=== PATIENT | male | born 1990 | race Caucasian/White ===

== ENCOUNTER 2025-02-19 14:07 | Emergency (ER) | payer OTHER, SELFPAY ==
--- OUTSIDE RECORDS SUMMARY | 2025-02-19 14:11 | XMS_ITS | Clinical Summary ---
Author Organization [employer] [facility] Address [facility] [place] [address] Care Team Providers Care Community Health Advisor Name Role Phone Chirag Serrato MD Primary Care Provider Allergies No known active allergies Medications No known medications Active Problems Problem Noted Date Diagnosed Date Benign paroxysmal positional vertigo 06/24/2008 Acute sinusitis, unspecified 06/24/2008 Pain in joint, lower leg 06/24/2008 Overview (06/24/2008): Left leg Contusion of thigh 11/16/2006 Immunizations Immunization Administration Dates Next Due Anthrax Vaccine 01/20/2015 Hepatitis A (Adult) 12/30/2010 Inactivated Polio Vaccine 10/29/2009 Influenza A (H1N1), Inactivated (Age >=3 Years) 10/29/2009 Influenza Virus, Unspecified 09/18/2020 Influenza, IIV4 09/18/2020 Meningococcal Vaccine 09/21/2006 Meningococcal Vaccine (Menactra) 10/29/2009,1107/2006 Smallpox (Vaccinia) Live [id number] 07/20/2012 Td (Age >=7 Years) 06/24/2003 Tdap 10/29/2009 Typhoid (injectable) 02/10/2014 Family History Medical History Relation Name Comments Hyperlipidemia Father Hypertension Father Relation Name Status Comments Father Social History Tobacco Use Types Packs/Day Years Used Date Smoking Tobacco: Never Smokeless Tobacco: Former Comments:no smokers in the h ouse Alcohol Use Standard Drinks/Week Comments No 0 (1 standard drink = 0.6 oz pur e alcohol) PHQ-2 Answer Date Recorded PHQ-2 TOTAL SCORE 0 10/05/2020 Social Connections Answer Date Recorded Frequency of Communication with Friends and Fami ly Not on file 11/09/2021 Financial Resource Strain Answer Date R ecorded Difficulty of Paying Living Expenses Not on file 11/09/2021 Difficulty of Paying Living Expenses Not on file 11/09/2021 Sex and Gender Information Value Date Recorded Sex Assigned at Not on file 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 Gender Identity Not on file Sexual Orientation Not on file Obstetrics History Last Filed Vital Signs Vital Sign Reading Time Taken Comments Blood Pressure 124/84 10/05/2020 2:59 PM COPY PREPARER Pulse 80 10/05/2020 2:59 PM COPY PREPARER Temperature - - Respiratory Rate 14 06/24/2008 1:41 PM CDT Oxygen Saturation - - Inhaled Oxygen Concentration - - Weight 97.7 kg (215 lb 4.8 oz) 10/05/2020 2:55 P M COPY PREPARER Height 177.8 cm (5' 10) 10/05/2020 2:55 PM COPY PREPARER Body Mass Index 30.89 10/05/2020 2:55 PM COPY PREPARER Plan of Treatment Health Maintenance Due Date Last Done Comments HIV for age 15-65 2003 Hepatitis C screening for ag e 18-79 2006 Tetanus booster 10/29/2019 10/29/2009, 06/24/2003 BMI (ht and wt on same day) for age 18+ 10/05/2021 10/05/2020 Depression screening for age 12+ 10/05/2021 10/05/2020 Lipids for age 35-44 2023 COVID-19 vaccine series ( season) 2024 Influenza Vaccine (Season Ended) 2025 09/18/2020, 09/18/2020 Tdap Completed 10/29/2009 Pneumococcal series for age 6-49 Aged Out No longer eligible b ased on patient's age to complete this topic Care Teams Community Health Advisor Relationship Specialty Start Date End Date Chirag Serrato MD [address] [place] [address] PCP - General 12/30/05
[2025-02-19 14:14] VITALS: BP 142/76; PULSE 86; RESP 16; TEMP 36.8; O2SAT 98
--- NOTE | 2025-02-19 14:23 | CRLHL7_ITS ---
For Patients: As a result of the Century Cures Act, medical imaging exams and procedure reports are released immediately into your electronic medical record. You may view this report before your referring provider. If you have questions, please contact your health care provider. INDICATION: Left nostril pain. Facial numbness. Rule out nasal fracture TECHNIQUE: Volumetric helical scanning of the facial bones was performed without contrast material. Sagittal and coronal reconstructions were also obtained. COMPARISON: None FINDINGS: No fracture is evident. The paranasal sinuses and nasal fossa are clear. The nasal septum is midline. No soft tissue abnormality is evident. IMPRESSION: Negative CT of the facial bones and paranasal sinuses Please note that all CT scans at this facility use dose modulation, iterative reconstruction, and/or weight-based dosing when appropriate to reduce radiation dose to as low as reasonably achievable. Dictated by Corwin Wetzel MD @ 02/19/2025 2:57:48 PM (Electronically Signed)
--- NOTE | 2025-02-19 14:28 | ED_ITS ---
HPI - General Adult General Chief complaint: Nose Injury/Pain Stated complaint: possible broken nose Time Seen by Provider: 02/19/25 14:08 History of Present Illness HPI narrative: 34-year-old white male playing hockey on Monday got elbowed in the nose. He has broken his nose a couple times in the past. He feels like it is a little numb below his nostrils. He had little bit of bleeding initially that seems to have stopped he is not having significant pain but he is having low more headaches that he has had. And he also when touching his nose at the tip of his nose actually he will get little more pain. No other problems with the neck, no loss consciousness. He is an avid fisherman. Related Data Allergies Allergy/AdvReac Type Severity Reaction Status Date / Time No Known Allergies Allergy Verified 02/19/25 14:13 Review of Systems Status of ROS: Reports: 6 or more systems reviewed and unremarkable except as noted in History and below PFSH PFS Social History Smoking Status: Never smoker How often do you have a drink containing alcohol: 2-4 times a month AUDIT-C Alcohol total score: 2 Non-prescribed substance use: denies use Exam Narrative: Exam Narrative: Objective: Vital signs show blood pressure slightly elevated Alert orient x3 Patient has no obvious nasal deformity, he does have no septal hematoma no bleeding noted in the nasal exam. He does have tenderness from the nasal bridge down to the tip of the nose. But there is no redness or erythema. He seems to feel breathe out of both nostrils. Const: Vital Signs, click to edit/add: Vital Signs - 24 hr 02/19/25 14:14 Temperature 98.3 F Pulse Rate [Pulse Oximeter] 86 Respiratory Rate 16 Blood Pressure [Ri ght Upper Arm] 142/76 H Pulse Oximetry 98 Oxygen Delivery Me thod Room Air Course Vital Signs Vital signs: Initial Vital Signs Temperature 98.3 F 02/19/25 14:14 Temperature Source Temporal Artery Scan 02/19/25 14:14 Pulse Rate 86 02/19/25 14:14 Respiratory Rate 16 02/19/25 14:14 Blood Pressure 142/76 H 02/19/25 14:14 Blood Pressure Mean 98 02/19/25 14:14 Pulse Oximetry 98 02/19/25 14:14 Oxygen Delivery Method Room Air 02/19/25 14:14 Vital Signs Temperature 98.3 F 02/19/25 14:14 Pulse Rate 86 02/19/25 14:14 Respiratory Rate 16 02/19/25 14:14 Blood Pressure 142/76 H 02/19/25 14:14 Pulse Oximetry 98 02/19/25 14:14 Oxygen Delivery Method Room Air 02/19/25 14:14 Temperature 98.3 F 02/19/25 14:14 Pulse Rate 86 02/19/25 14:14 Respiratory Rate 16 02/19/25 14:14 Blood Pressure 142/76 H 02/19/25 14:14 Pulse Oximetry 98 02/19/25 14:14 Oxygen Delivery Method Room Air 02/19/25 14:14 Medical Decision Making MDM Narrative Medical decision making narrative: [age] year white male injured his nose playing hockey with an elbow, and has numbness around his nose as well as and nasal pain. He does not have gross malalignment but I think a CT scan might be helpful for both diagnosis and for potential planning for ENT if he needs that. This will be ordered of his facial bones and disposition pending findings. If this looks negative I think we can simply have him ice anti-inflammatory medicine. If it is positive I think we should have him see ENT Dr. Sherman Zee in. Addendum 3:00 p.m.: The patient's nasal says and facial bone CT is negative. Recommend observation ice Advil as needed, recheck as needed. Recommend light activity and no contact activity for the next 3-5 days until he is feeling better then can resume normal activities. Discharge Plan Discharge Clinical Impression: Injury of nose Patient Disposition: Home, Self-Care Condition: Stable Additional Instructions: Ice to the nose as tolerated, Advil as needed, recheck as needed. Activity Level: No Restrictions Discharge Diet: Regular Follow Up/Referrals: Bella Eid MD [Primary Care Provider] - Stand Alone Forms: Pouring Pounds Info Instructions
--- OUTSIDE RECORDS SUMMARY | 2025-02-19 14:36 | XMS_ITS | Clinical Summary ---
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 Gender Identity Not on file Sexual Orientation Not on file Obstetrics History Last Filed Vital Signs Vital Sign Reading Time Taken Comments Blood Pressure 124/84 10/05/2020 2:59 PM GEOTHERMAL PRODUCTION MANAGER Pulse 80 10/05/2020 2:59 PM GEOTHERMAL PRODUCTION MANAGER Temperature - - Respiratory Rate 14 06/24/2008 1:41 PM CDT Oxygen Saturation - - Inhaled Oxygen Concentration - - Weight 97.7 kg (215 lb 4.8 oz) 10/05/2020 2:55 P M GEOTHERMAL PRODUCTION MANAGER Height 177.8 cm (5' 10) 10/05/2020 2:55 PM GEOTHERMAL PRODUCTION MANAGER Body Mass Index 30.89 10/05/2020 2:55 PM GEOTHERMAL PRODUCTION MANAGER Plan of Treatment Health Maintenance Due Date [...] age to complete this topic Care Teams Director Of Informatics Relationship Specialty Start Date End Date Chirag Serrato MD [address] [place] [address] PCP - General 12/30/05
== END 2025-02-19 15:07 | disposition home or self-care (01) ==
PROVIDERS: Emergency Provider Family Medicine; PCP Emergency Medicine
DX: S09.92XA Unspecified injury of nose, initial encounter (principal); W50.0XXA Accidental hit or strike by another person, initial encounter; Y93.22 Activity, ice hockey
CPT/HCPCS: 70486; 99283